=== PATIENT | female | born 2000 | race Two or more races ===

== ENCOUNTER 2024-08-14 12:02 | Emergency (ER) | payer BC ==
[~2024-08-14] VITALS: Ht 162.6 cm; Wt 69.9 kg
[2024-08-14] MEDS ORDERED: FAMOTIDINE/PF 20 MG/2 ML VIAL IV ONE (15:30)
[2024-08-14] MEDS ORDERED: 0.9 % SODIUM CHLORIDE 500 ML IV ONE (15:30)
[2024-08-14] MEDS ORDERED: HYOSCYAMINE SULFATE 0.125 MG TAB.SUBL SL ONE (15:30)
[2024-08-14] MEDS ORDERED: ONDANSETRON HCL 2 MG/ML VIAL IV ONE (15:30)
[2024-08-14 16:32] LABS: URINE APPEARANCE Clear; URINE BILIRRUBIN Negative (NEGATIVE); URINE BLOOD Large; URINE COLOR Yellow; URINE GLUCOSE Negative (NEGATIVE); URINE KETONE Negative (NEGATIVE); URINE LEUKOCYTE Small; URINE NITRATE Negative; URINE PROTEIN Negative (NEGATIVE)
[2024-08-14 16:34] LABS: HEMATOCRIT 40.6 % (36.0-45.00); HEMOGLOBIN 13.9 g/dL (12.0-15.00); MEAN CELL VOLUME 87.1 fL (80.00-100.00); MEAN CORPUSCULAR HEMOGLOBIN 29.9 pg (27.00-32.0); MEAN CORPUSCULAR HGB CONC 34.3 g/dl (32.0-36.0); PLATELET COUNT 324 K/uL (150-450); RED BLOOD COUNT 4.66 M/uL (4.00-6.00); RED CELL DISTRIBUTION WIDTH 13.6 % (11.5-14.5)
[2024-08-14 16:40] LABS: URINE BACTERIA 671.4 uL (0.0-1933); URINE EPITHELIAL CELLS 117.3 uL (0.0-38.8); URINE RBC 13.1 uL (0.0-20.8); URINE WBC 99.2 uL (0.0-23.2)
[2024-08-14 17:02] LABS: URINE CAST 0.15 uL (0.0-1.40)
[2024-08-14 17:10] LABS: ALBUMIN 4.2 gm/dL (3.4-5.0); BILIRUBIN TOTAL 0.65 mg/dL (0.3-1.2); CALCIUM 9.1 mg/dL (8.5-10.1); CREATININE SERUM 0.57 mg/dL (0.55-1.02); GFR 132.63; POTASSIUM 4.19 mEq/L (3.5-5.1); TOTAL PROTEIN 8.2 gm/dL (6.4-8.2)
[2024-08-14] MEDS ORDERED: INTESTINEX680 M1 PO (18:18)
[2024-08-14] MEDS ORDERED: LEVSIN0.125 MG SL (18:18)
[2024-08-14] MEDS ORDERED: PEPCID AC20 MG PO (18:18)
[2024-08-14] MEDS ORDERED: ONDANSETRON HCL4 MG PO (18:18)
== END 2024-08-14 18:25 | disposition home or self-care (01) ==
LOC: ER 12:03
PROVIDERS: Nurse Practitioner Family
DX: K58.9 Irritable bowel syndrome, unspecified (principal); R11.2 Nausea with vomiting, unspecified; R10.9 Unspecified abdominal pain